=== PATIENT | male | born 1990 | race Two or more races ===

== ENCOUNTER 2017-03-10 22:39 | Emergency (ER) | payer OTHER ==
[2017-03-10 22:46] VITALS: BP 129/59; PULSE 92; TEMP 99.1; BMI 20.3
--- NOTE | 2017-03-11 00:22 | PDOC ---
History of Present Illness - General Chief Complaint: Cold Symptoms Stated Complaint: COLD SYMPTOMS Time Seen by Provider: 03/11/17 00:16 History Source: Patient - History of Present Illness Initial Comments: 03/11/17 00:50 27 year old male c/o uri symptoms for 1 week now with chest congestion and pain worse at night. denies fever/ chills patient reports smoking hookah daily. 03/11/17 02:41 Timing/Duration: reports: just prior to arrival, week Severity: reports: moderate Possible Cause: Yes: no prior episodes Modifying Factors: improves with: lying down Associated Symptoms: reports: cough Past History - Past Medical History Allergies/Adverse Reactions: Allergies Allergy/AdvReac Type Severity Reaction Status Date / Time No Known Allergies Allergy Verified 03/10/17 22:46 Home Medications: Ambulatory Orders Ondansetron [Zofran Odt -] 4 mg SL TID PRN #21 od.tablet 03/21/15 Albuterol Sulfate Inhaler - [Ventolin HFA Inhaler -] 1 - 2 inh PO Q4H PRN #1 inhaler 03/11/17 Prednisone [Prednisone 50 MG TABLETS] 50 mg PO DAILY #5 tablet 03/11/17 COPD: No - Suicide/Smoking/Psychosocial Hx Smoking History: Current some day smoker Number of Cigarettes Smoked Daily: 2 Information on smoking cessation initiated: No Hx Alcohol Use: No Drug/Substance Use Hx: No Substance Use Type: None Review of Systems - Review of Systems Able to Perform ROS?: Yes Is the patient limited Surinamese proficient: No Constitutional: Yes: Loss of Appetite. No: Symptoms Reported, See HPI, Chills, Diaphoresis, Fever, Malaise, Night Sweats, Weakness, Weight Stable, Unintentional Wgt. Loss, Unexplained wgt Loss, Other HEENTM: No: Symptoms Reported, See HPI, Eye Pain, Blurred Vision, Tearing, Recent change in vision, Double Vision, Cataracts, Ear Pain, Ocular Prothesis, Ear Discharge, Nose Pain, Nose Congestion, Tinnitus, Nose Bleeding, Hearing Loss , Throat Pain, Throat Swelling, Mouth Pain, Dental Problems, Difficulty Swallowing, Mouth Swelling, Other Respiratory: Yes: Cough, Shortness of Breath, Wheezing. No: Symptoms reported, See HPI, Orthopnea, SOB with Exertion, SOB at Rest, Stridor, Productive cough, Hemoptysis, Other Cardiac (ROS): No: Symptoms Reported, See HPI, Chest Pain, Edema, Irregular Heart Rate, Lightheadedness, Palpitations, Syncope, Chest Tightness, Other ABD/GI: No: Symptoms Reported, See HPI, Abdominal Distended, Abd. Pain w/ defecation, Blood Streaked Bowels, Constipated, Diarrhea, Difficulty Swallowing , Nausea, Poor Appetite, Poor Fluid Intake, Rectal Bleeding, Vomiting, Indigestion, Abdominal cramping, Tarry Stools, Other : No: Symptoms Reported, See HPI, Burning, Dysuria, Discharge, Frequency, Flank Pain, Hematuria, Incontinence, Pain, Urgency, Testicular Mass, Testicular Swelling, Lesions, Testicular Pain, Other *Physical Exam - Vital Signs Last Vital Signs Temp Pulse Resp BP Pulse Ox 99.1 F 92 H 20 129/59 97 03/10/17 22:40 03/10/17 22:40 03/10/17 22:40 03/10/17 22:40 03/10/17 22:40 - Physical Exam General Appearance: Yes: Appropriately Dressed Respiratory/Chest: positive: Wheezing (through out with decreased breath sounds) Medical Decision Making - Medical Decision Making 03/11/17 02:41 breath sounds clear. reports feeling better. *DC/Admit/Observation/Transfer Diagnosis at time of Disposition: Reactive airway disease Qualifiers: Asthma severity: moderate Asthma persistence: persistent Asthma complication type: with acute exacerbation Qualified Code(s): J45.41 - Moderate persistent asthma with (acute) exacerbation - Discharge Dispostion Disposition: HOME - Prescriptions Prescriptions: Albuterol Sulfate Inhaler - [Ventolin HFA Inhaler -] 1 - 2 inh PO Q4H PRN #1 inhaler PRN Reason: Wheezing Prednisone [Prednisone 50 MG TABLETS] 50 mg PO DAILY #5 tablet - Referrals - Patient Instructions Printed Discharge Instructions: DI for Reactive Airway Disease-Adult Additional Instructions: continue albuterol every 6 hours as needed for cough. follow up with your doctor as soon as possible take prednisone as prescribed. return to the ED if symptoms worsen, - Post Discharge Activity Forms/Work/School Notes: Back to Work
[2017-03-11] MEDS ORDERED: ALBUTEROL SO4 2.5/IPRATROPIUM 0.5 INH SOL 3 ML VIAL.NEB. NEB ONE (00:42)
[2017-03-11] MEDS: ALBUTEROL SO4 2.5/IPRATROPIUM 0.5 INH SOL 3 ML VIAL.NEB. NEB SCH ×2 (00:54→01:03)
== END 2017-03-11 02:53 | disposition home or self-care (01) ==
LOC: JER 22:39
PROC: 3E0F7GC Introduction of Other Therapeutic Substance into Respiratory Tract, Via Natural or Artificial Opening (ICD-10-PCS; principal; 2017-03-10)
DX: J45.41 Moderate persistent asthma with (acute) exacerbation (principal)
CPT/HCPCS: 99281-25

== ENCOUNTER 2019-04-24 20:10 | Emergency (ER) | payer OTHER ==
[2019-04-24 20:18] VITALS: BMI 20.2
[2019-04-24] MEDS ORDERED: ACETAMINOPHEN 500 MG TABLET (FP) PO ONE (20:45)
[2019-04-24] MEDS ORDERED: ACETAMINOPHEN 500 MG TABLET (FP) ONE (20:47)
[2019-04-24 21:00] VITALS: BP 117/64; PULSE 107; TEMP 99.8
--- NOTE | 2019-04-24 21:04 | PDOC ---
Documentation entered by Ranulfo Machado SCRIBE, acting as scribe for Deborah Cardoso MD. Deborah Cardoso MD: This documentation has been prepared by the Carter combs Nirvannie, SCRIBE, under my direction and personally reviewed by me in its entirety. I confirm that the documentation accurately reflects all work, treatment, procedures, and medical decision making performed by me. History of Present Illness - General Chief Complaint: Respiratory Stated Complaint: FEVER, DIARRHEA X 1, DRY THROAT, DRY COUGH Time Seen by Provider: 04/24/19 20:17 History Source: Patient Exam Limitations: No Limitations - History of Present Illness Initial Comments: 04/24/19 20:53 The patient is a 29 year old male, with no significant past medical history, who presents to the emergency department with 3 days of subjective fevers, chills and new onset diarrhea (2 episodes of nonbloody). Patient notes he has not checked his temperature secondary to not having a thermometer. Patient notes to not have taken anything for his symptoms. He denies any recent nausea, vomit, or constipation. He denies any recent chest pain or shortness of breath. He denies any recent dysuria, frequency, urgency or hematuria. PAST MEDICAL HISTORY: no significant history PAST SURGICAL HISTORY: no significant history FAMILY HISTORY: no pertinent history SOCIAL HISTORY: Pt lives with family and is employed. MEDICATIONS: reviewed ALLERGIES: As per nursing notes ROS: General: +fevers +chills, no weakness, no weight loss HEENT: No change in vision. No sore throat,. No ear pain CardioVascular: No chest pain or shortness of breath Respiratory:No cough, or wheezing. Gastrointestinal: +Diarrhea. no nausea, vomiting, or constipation, No rectal bleeding Genitourinary: No dysuria, hematuria, or frequency Musculoskeletal: No joint or muscle pain or swelling Neurologic: No headache, vertigo, dizziness or loss of consciousness Psychiatric: nor depression Skin: No rashes or easy bruising Endocrine: no increased thirst or abnormal weight change Allergic: no skin or latex allergy All other systems reviewed and normal Physical Exam: GENERAL: The patient is awake, alert, and fully oriented, in no acute distress. HEAD: Normal with no signs of trauma. EYES: Pupils equal, round and reactive to light, extraocular movements intact, sclera anicteric, conjunctiva clear. CARDIAC: +Tachycardic. rhythm, no murmurs rubs or gallops EXTREMITIES: Normal range of motion, no edema. NEUROLOGICAL: Normal speech, normal gait. PSYCH: Normal mood, normal affect. SKIN: Warm, Dry, normal turgor, no rashes or lesions noted. 04/24/19 21:03 Assessment and plan: This is a 29-year-old male with influenza-like symptoms. Patient has had symptoms x3 days so no fight Tamiflu is indicated. Patient given Tylenol for his fever told to get a thermometer and treat his fever with Tylenol alternating with Motrin. Patient discharged we will follow-up with his primary care doctor as needed Past History - Past Medical History Allergies/Adverse Reactions: Allergies Allergy/AdvReac Type Severity Reaction Status Date / Time No Known Allergies Allergy Verified 04/24/19 20:13 Home Medications: Ambulatory Orders NK [No Known Home Medication] 04/24/19 COPD: No - Psycho Social/Smoking Cessation Hx Smoking History: Never smoked Have you smoked in the past 12 months: No Number of Cigarettes Smoked Daily: 2 Information on smoking cessation initiated: No Hx Alcohol Use: ("occasional") Drug/Substance Use Hx: No Substance Use Type: None *Physical Exam - Vital Signs Last Vital Signs Temp Pulse Resp BP Pulse Ox 102.7 F H 118 H 20 115/68 99 04/24/19 20:10 04/24/19 20:10 04/24/19 20:10 04/24/19 20:10 04/24/19 20:10 ED Treatment Course - Medications Given in the ED: ED Medications Discontinued Medications Generic Name Dose Route Start Last Admin Trade Name Freq PRN Reason Stop Dose Admin Acetaminophen 1,000 mg 04/24/19 20:45 04/24/19 20:49 Tylenol - PO 04/24/19 20:46 1,000 mg ONCE ONE Administration Discharge - Discharge Information Problems reviewed: Yes Clinical Impression/Diagnosis: Influenza-like illness Condition: Stable Disposition: HOME - Admission No - Follow up/Referral - Patient Discharge Instructions Additional Instructions: Get a thermometer so you can take your temperature. Alternate acetaminophen with ibuprofen every 4 hours as needed to control the fevers, headache, body aches. Stay well-hydrated drink plenty of fluids return to the emergency department immediately with ANY new, persistent or worsening symptoms. Continue any medications as previously prescribed by your physician. You should follow up with your primary doctor as soon as possible regarding today's emergency department visit. . Please make sure your doctor reviews the results of your emergency evaluation. Thank you for coming to the Emergency Department today for your care. It was a pleasure to see you today. Please note that your evaluation is INCOMPLETE until you follow-up with your doctor. . - Post Discharge Activity
== END 2019-04-24 21:00 | disposition home or self-care (01) ==
LOC: FER 20:10
DX: J11.1 Influenza due to unidentified influenza virus with other respiratory manifestations (principal)
CPT/HCPCS: 99282-25